=== PATIENT | male | born 1995 | race Caucasian/White ===

== ENCOUNTER 2020-10-23 10:59 | Outpatient (CLI) | payer OTHER, SELFPAY | END 2020-10-23 11:00 | disposition home or self-care (01) | LOC: ANHCOVIDVC 10:59 | DX: Z23 Encounter for immunization (principal) | CPT/HCPCS: 0001A; 91300 ==

== ENCOUNTER 2020-11-13 10:53 | Outpatient (CLI) | payer OTHER, SELFPAY | END 2020-11-13 10:54 | disposition home or self-care (01) | LOC: ANHCOVIDVC 10:53 | DX: Z23 Encounter for immunization (principal) | CPT/HCPCS: 0002A; 91300 ==